=== PATIENT | female | born 1960 | race Caucasian/White ===

== ENCOUNTER 2025-02-07 01:29 | Inpatient (IN) | payer OTHER, SELFPAY ==
[2025-02-06] VITALS (7 sets, daily range): BP systolic 89–156; BP diastolic 58–87; BMI 25.0
--- NOTE | 2025-02-06 20:10 | ED.GENMED ---
History of Present Illness
General
Chief Complaint: Fall
Source: patient and spouse
Time Seen by Provider: 02/06/25 19:56
History of Present Illness
History of Present Illness:
This patient is a 64-year-old female presents emergency department after suffering a fall at approximately 2 PM. Patient has a history of an irregular gait and wears braces on both her legs. She was not wearing braces at the time of the event.
She was in her home, and turned to go into the kitchen and stumbled, says that she struck the right hip area on the wall before falling to the ground. She denies head injury, neck pain, numbness, tingling, focal weakness, chest pain, shortness of
breath, abdominal pain. She does note discomfort in the right inner groin area particularly with movement. This pain will sometimes radiate distally to the level of the knee. She denies back pain, or other complaints.
Past History
Past History
ED Past Medical History: Cancer (Skin cancer), GERD (Hiatal hernia), Psychiatric and Other (L1 compression fracture)
ED Past Surgical History: Orthopedic and Other (Skin cancer removal from nose)
Social History
Tobacco: Former smoker
Alcohol: None
Drug: None
Personal:
Living: with family
Employment: Not employed
Family History
Family History: Other (Noncontributory)
Phy Exam
Physical Exam
Physical Exam:
GENERAL: Alert , in no apparent distress
EYE: pupils equal and reactive, EOMI, no nystagmus, no photophobia
NECK: Supple, no significant adenopathy, no midline tenderness.
ENT: o/p clr, mmm, no guevara, no raccoon, no signs of head or facial injury noted on exam.
CARDIAC: Regular rate and rhythm .
LUNGS: Clear breath sounds bilaterally, no acute respiratory distress, no wheezes/rales/rhonchi
ABDOMEN: Soft, without focal tenderness, no r/g
NEUROLOGICAL: Alert and oriented, nonfocal, sens intact, cn intact. Pt with diminished motor in le bilat, chronic
SKIN: Warm and dry, skin intact.
MUSCULOSKELETAL: No edema, well perfused. 2+ DP pulses. Decr ROM of R hip due to pain. No rotation, deformity/bruising/swelling. THere is ttp note at R inguinal fold area (mild), no sts/bruiising, ttp at entire R le otherwise
PSYCH: Normal and appropriate interaction.
Course
Orders/Labs/Results
Orders:
Orders
02/06/25 20:10
Morphine Sulfate 6 mg IV NOW STA
Hip, Right 2-3 Views [CR Hip - RT w/wo Pel 2-3 Vw*] Urgent
Comment:
Reason For Exam: fall
Include a pelvis x-ray?: Yes
02/06/25 22:28
Morphine Sulfate 6 mg IV NOW STA
02/07/25 00:53
Admit/Transfer Patient As Directed
Co-Sign Provider:
Level of Care: Inpatient admission
Assign to:: Medical/Surgical
Physician / Group: Julio
Diagnosis: Fall with hip fracture
Reason for Hospitalization: hip fracture
Expected length of stay greater than two midnights?: Yes
ELOS- Estimated Length of Stay in days: 2
I certify the patient meets the requirements for IP care: Yes
Code Status As Directed
Resuscitation Status: Full Code
PRN Pain Medication Management As Directed
May give lesser potent ordered pain med per pt: Yes
preference::
Protocol:: Medication orders for pain may be administered in a
manner that supports deferring to patient preference
when the pt is:
- Requesting an ordered lesser potent pain medication.
Least to most potent pain medications are defined
as: acetaminophen < NSAID < tramadol < opioids
(morphine, oxycodone, hydromorphone).
- Requesting a lesser dose of the same medication IF
ORDERED.
- Requesting a less intrusive route of administration
if both routes are prescribed by the provider (PO <
IV).
02/07/25 01:31
Oxycodone [Roxicodone] 5 mg PO Q6HPRN PRN
02/07/25 02:38
Dextrose 5%/Lactringers 1000ML [D5lr] 1,000 ml IV 75 mls/hr
Magnesium Hydroxide [Milk of Magnesia] 30 ml PO DAILYPRN PRN
Ondansetron Injectable [Zofran] 4 mg IV Q6HPRN PRN
02/07/25 02:38
ORTHOPEDIC CONSULT Routine
Consulting Provider: Fredy Lopez
Was physician already notified: Yes
Activity As Directed
Activity Level: With Assistance
Bladder Scan As Directed
Follow Bladder Retention/Intermittent Cath Algorithm?: Yes
PRN if no void in __ hours: 6
Comment: if not voiding 6 hrs upon arrival to floor, bladder scan & follow algorithm
Intake/ Output As Directed
Frequency: Per unit guidelines
Pneumatic Compression Sleeves As Directed
Type: Knee high
Straight Cath As Directed
Frequency: Per Retention Algorithm
Additional Instructions: straight cath as needed per acute urinary retention algorithm for 24 hrs
Additional Instructions: for bladder scan greater than 400 mL
Vital Signs As Directed
Frequency: Per unit guidelines
Weight Bearing Status As Directed
Weight bearing to: Right lower extremity
Type: Non Wt. bearing
Ot Eval And Treat Routine
Pt Eval And Treat Routine
Activity Level: With Assistance
DX Deep Vein Thrombosis Video Routine
02/07/25 03:00
Morphine Sulfate 1 mg IV Q2HPRN PRN
Morphine Sulfate 2 mg IV Q2HPRN PRN
02/07/25 04:00
Acetaminophen [Tylenol] 650 mg PO Q4HWA
02/07/25 05:24
Complete Blood Count/With Diff IN AM
Prothrombin Time IN AM
02/07/25 Breakfast
NPO
Allow oral meds: Yes
Allow clear liquids: Sips of Clears
02/07/25 08:00
Paroxetine [Paxil] 20 mg PO DAILY
02/07/25 20:00
Docusate Sodium [Colace] 100 mg PO BID
Sennosides [Senokot] 17.2 mg PO BID
02/07/25 22:00
Trazodone [Desyrel] 50 mg PO HS
Vital Signs
Initial and Last Documented VS:
Initial Vital Signs
Temp Pulse Resp BP Pulse Ox
97.7 F 68 20 156/87 100
02/06/25 15:17 02/06/25 15:17 02/06/25 15:17 02/06/25 15:17 02/06/25 15:17
Last Documented Vital Signs
Temp Pulse Resp BP Pulse Ox
98.4 F 78 16 130/84 95
02/07/25 15:30 02/07/25 15:30 02/07/25 15:30 02/07/25 15:30 02/07/25 15:30
*Pulse Oximetry
SaO2: 100
Oxygen Mode of Delivery: Room air
Patient hypoxic: no
*Critical Care Note
Total Time (30-74mins, 75-104mins- exclusive of procedures): Not Applicable
Update Note
Update Note:
Patient presents to the Emergency Department with fall
Number and Complexity of Problems Addressed at the Encounter
� Chronic conditions affecting care:
� Acute Exacerbation and/or Progression of Chronic Illness:
� Differential Diagnosis includes: But not limited to hip fracture, pelvic fracture, soft tissue injury, closed head injury, sacral/lumbar fracture, etc. etc.
Amount and/or Complexity of Data to be Reviewed and Analyzed
� I performed an independent evaluation of and my interpretation is:
EKG:
CT:
Xrays: Right sided hip fracture noted
Laboratory Studies:
Other:
� Review of other/old records reveals:
� Clinical information was obtained by an independent historian: who is bedside
� Prescriptions/Medications Considered but not given:
� Further testing considered but not performed:
Risk of Complications and/or Morbidity or Mortality of Patient Management
� Social determinants of health affecting care:
� Discussion with other providers (PCP, Hospitalists, Consultants, etc):
� Escalation of care including admission/observation vs risk of discharge considered: Patient denies preceding symptoms to fall to suggest cardio or neurovascular new event.
Case discussed with Dr. Lopez via [place] text, x-ray shared, patient will be admitted to hospitalist with plans for probable operative intervention tomorrow.
ED Attending Note
-
Portions of this chart may have been created with voice recognition software.� Occasional wrong word or��sound alike� substitutions may have occurred due to the inherent limitations of voice recognition software.
Discharge Plan
Departure
Patient Disposition: Admit
Date of Disposition: 02/06/25
Time of Disposition: 23:59
Presentation/result/management discussed w/ accepting MD/DO: Hospitalist
Discharge Problem:
Closed hip fracture
Interventions
Interventions:
*General Assessment Last Done: 02/06/25 15:22
*Neglect/Abuse Screening Last Done: 02/06/25 15:22
*ED COVID-19 Vaccine History Last Done: 02/06/25 15:22
*ED Influenza Vaccine History Last Done: 02/06/25 15:22
[facility] Fall Risk Assessment Tool Last Done: 02/06/25 20:00
*Risk Screen - Suicide (C-SSRS) Last Done: 02/06/25 15:22
*Nursing Disposition Last Done: 02/07/25 06:04
ED-Musculoskeletal Assessment Last Done: 02/06/25 20:53
ED- Neurological Assessment Last Done: 02/06/25 20:53
ED-Skin Assessment Last Done: 02/06/25 20:53
Discharge Date and Time
Discharge Date/Time: 02/07/25 06:05
[2025-02-06] MEDS: MORPHINE SULFATE 6 MG IV ×2 (20:49→22:53)
[2025-02-07] VITALS (18 sets, daily range): BP systolic 86–134; BP diastolic 59–93; PULSE 76; O2SAT 93; BMI 24.8
--- NOTE | 2025-02-07 00:34 | HPS.HSE ---
Family Physician
-
Family Physician: Halima Mccann DO
Chief Complaint
-
Mechanical fall
History of Present Illness
Patient is a 64-year-old female with past medical history significant for history of L1 compression fracture at age 14 with resultant chronic damage normal x-rays difficulties requiring braces who presents to the emergency department following a
fall at home.
Patient reported that she usually has braces on knees when she is ambulating around but when she is home she has braces started out for inserts and less effective. She was using the inside braces at home when she reported rapidly and then misjudged
her step and fell. She slammed against a dog but did not hit her head and did not did not fall. She had significant pain immediately and was having difficulty ambulating.
In the emergency department she was found to have a hip fracture. Blood pressure was 101/77 pulse of 78 and oxygen saturation of 97% on room air.
X-ray shows a right sided displaced trochanteric fracture.
Medical History
Past Medical History
Past Medical History: Reports Psychiatric (Anxiety,) and Other (Bilateral foot drop)
Past Surgical History: Reports Orthopedic (L1 compression fracture,)
Social History
Tobacco: Non-smoker
Alcohol: Occasional
Drug: None
Personal:
Living: With Family
Family History
Family History: Not pertinent
Allergies / Home Medications
Allergies reflects when Allergies were last updated in [employer].
Home Medications with original date entered in [employer]
Allergy/Medication List:
Allergies
Allergy/AdvReac Type Severity Reaction Status Date / Time
fluticasone (From Flonase) Allergy Hives Verified 02/06/25 15:23
Home Medications
Multivitamin PO DAILY 07/03/14
loratadine 10 mg tablet 10 mg PO DAILY 07/03/14
paroxetine HCl 20 mg tablet 20 mg PO DAILY 07/03/14
Trazodone 50 mg tablets, 50 mg p.o. at bedtime
Review of Systems
-
Constitutional: Reports No Symptoms
EENT: Reports No Symptoms
Respiratory: Reports No Symptoms
Cardiac: Reports No Symptoms
Abdomen/GI: Reports No Symptoms
: Reports No Symptoms
Musculoskeletal: Reports Joint Pain
Skin: Reports No Symptoms
Neurological: Reports No Symptoms
Endocrine: Reports No Symptoms
Hematologic/Lymphatic: Reports No Symptoms
Psych: Reports No Symptoms
Physical Exam
Vital Signs
Vital Signs
Temp Pulse Resp BP Pulse Ox
97.7 F 78 16 121/77 97
02/06/25 15:17 02/06/25 22:56 02/06/25 22:56 02/06/25 22:53 02/06/25 23:47
Physical Exam
General: Well Developed, Well Nourished and No Apparent Distress
HEENT: NormoCephalic, Moist mucous membranes and Atraumatic
Respiratory: Clear
Cardiac: S1/S2 and Regular Rhythm; No Murmur or Rub
GI: Soft, Non Tender, Non Distended and Normal Bowel Sounds; No Organomegaly
Rectal: Deferred by Provider
Musculoskeletal: No Clubbing, No Cyanosis and No Edema
Skin: No Rash
Neuro: Nonfocal/grossly intact
Psych: Calm
Data Reviewed
-
Diagnostic Radiology: Image Personally Visualized and interpreted
Impression/Plan
-
IMPRESSION:
Patient is a 64-year-old with past medical history significant for L1 compression fracture with resultant bilateral foot drop and ambulatory dysfunction who suffered a mechanical fall she was pivoting slamming against a door with the right hip and
developed pain intertrochanteric fracture of the right hip on x-ray. She is hemodynamically stable. Pulses are intact. She is nontoxic-appearing. She is not on any blood thinners or aspirin and did not hit her head.
PLAN:
Femur fracture
- Admit to [facility]
-Bedrest for now
-Pain control and antiemetics
-N.p.o., maintenance fluids
� Discussed with orthopedics, plan for operative intervention in a.m.
� Follow-up fracture protocol with monitoring for urinary retention
� PT consult
DVT processes�SCDs for now, can start anticoagulation after surgical procedure
CODE STATUS�full code
[2025-02-07] MEDS: MORPHINE SULFATE 2 MG IV ×3 (02:24→08:16)
[2025-02-07] MEDS: D5LR 1000 IV (03:44)
[2025-02-07] MEDS: ROXICODONE 5 MG PO ×2 (03:58→21:05)
[2025-02-07] MEDS: TYLENOL 650 MG PO ×5 (04:12→21:06)
[2025-02-07 05:36] LABS: Hematocrit 36.6 % (37.0-47.0); Hemoglobin 13.3 g/dL (12.0-16.0); Mean Corp Hgb Conc. 36.3 g/dL (33.0-37.0); Mean Corpuscular Volume 77.7 fL (81.0-99.0); Nucleated Red Blood Cells % 0 %; Platelet Count 243 10^3/uL (130-400); Red Cell Dist. Width 12.5 % (11.5-14.5)
[2025-02-07 05:55] LABS: INR 1.15; PT 14.8 Sec (11.4-14.6)
[2025-02-07 06:18] LABS: Blood Urea Nitrogen 7 mg/dl (7-17); Calcium 8.2 mg/dl (8.4-10.2); Carbon Dioxide 24 mmol/L (22-30); Chloride 102 mmol/L (98-107); Estimated Creatinine Clearance 89 ml/min; Glucose 110 mg/dl (70-99); Sodium 132 mmol/L (135-145); eGFR > 60.00
--- NOTE | 2025-02-07 07:35 | CON.ORTHO ---
Consultation
-
Date/Time Consultation Requested: 02/07/2025 @ 2:38 AM
Date/Time Consultation Performed: 02/07/2025 @ 7:15 AM
Requesting Provider: Bernadette Kim MD
Performing Provider: Ankit Gonzalez PA-C for Dr. Lopez
Reason for Consultation: Right Hip Pain s/p Mechanical Fall
Consultation - Orthopedics
History
Orthopedic Surgery Note
CC: Right Hip Pain s/p Mechanical Fall
HPI: The patient is a 64-year-old female with PMH significant for history of L1 compression fracture at age 14, which unfortunately resulted in chronic neurologic sequelae, who presented to [facility] ED via EMS after sustaining a mechanical fall
yesterday. She reports that she utilizes the lower extremity braces due to irregular gait. She typically does not ambulate with assistance of a walker or cane. She reports that she was not wearing the braces at the time of the event. She was in
her home, and turned to go into the kitchen and stumbled, says that she struck the right hip area on the wall before falling to the ground. She reports immediate onset of pain to the right hip and inability to weight-bear. In the ED, x-rays
revealed a right proximal femur fracture. Orthopedic surgery was consulted for the consideration of surgical fixation.
PMH/PSH:
Past Medical History: Reports Psychiatric (Anxiety,) and Other (L1 compression fracture)
Past Surgical History: Orthopedic and Other (Skin cancer removal from nose)
Medications: Reviewed.
Family History: Family history was reviewed. Noncontributory.
Social history:
Tobacco: Non-smoker
Alcohol: Occasional
Drug: None
Personal:
Living: With family in single level home
Review of Systems: 12-point review of systems obtained and negative except those mentioned in the HPI.
Exam:
General appearance: Pleasant. No acute distress.
Head: Normocephalic/atraumatic
Nose: No lesions or discharge.
Skin: No obvious rashes or open wounds
Lungs: No audible wheezing, no cough or sputum production
Musculoskeletal:
RLE: Directed exam of the right lower extremity reveals leg shortened and externally rotated. (+) TTP about the right hip/lateral thigh. Compartments are soft and compressible. (+) Logroll. Calf is soft and nontender to palpation. Able to
dorsiflex and plantarflex right ankle; strength intact with resisted dorsiflexion and weakness noted with resisted plantarflexion.
Imaging:
X-rays: CR Hip - RT w/wo Pel 2-3 Vw* was obtained [facility] on 02/06/2025 and was made available for my review today. Findings/Impression: Intertrochanteric femoral fracture with displacement of the lesser trochanter.
Assessment: 64-year-old female with a RIGHT intertrochanteric proximal femur fracture. History of L1 compression fracture with chronic neurologic sequelae.
Plan: Unfortunately, the patient has sustained a right hip fracture. Treatment options, including both nonoperative and operative approaches were discussed with the patient this morning at length. Recommended operative fixation. The risks,
benefits, potential complications and expected post-operative course were reviewed. We will plan for RIGHT hip gamma nail under the direction of Dr. Lopez today, 02/07/2025. Surgical and blood consents obtained and placed on patient's chart.
Ancef on-call to OR. Patient will remain NPO. Remain NWB to RLE until postop. She is to remain on bedrest for now. Continue with pain medications as needed. Type and screen pending. Right hip marked as the correct surgical extremity.
Hemoglobin 13.3 from this AM. Orthopedic surgery will continue to follow along.
Allergies / Home Medications
Allergy/AdvReac Type Severity Reaction Status Date / Time
fluticasone (From Flonase) Allergy Hives Verified 02/06/25 15:23
�Medication �Instructions �Recorded
Multivitamin PO DAILY 07/03/14
ascorbic acid (vitamin C) 500 mg 500 mg PO DAILY 07/03/14
tablet (Vitamin C)
calcium carbonate (calcium) 500 mg PO DAILY 07/03/14
loratadine 10 mg tablet 10 mg PO DAILY 07/03/14
paroxetine HCl 20 mg tablet 20 mg PO DAILY 07/03/14
trazodone 50 mg tablet 50 mg PO HS 02/07/25
Vital Signs / Lab Results
Temp Pulse Resp BP Pulse Ox
98.1 F 64 16 134/83 96
02/07/25 06:23 02/07/25 06:23 02/07/25 06:23 02/07/25 06:23 02/07/25 06:23
02/07/25 05:24
02/07/25 05:24
--- NOTE | 2025-02-07 09:57 | CM ---
CM went to visit patient
Right Hip Pain s/p Mechanical Fall
unavailable at this time, OR
CM to follow up with patient
[2025-02-07] MEDS: ANCEF 10 IV (09:59)
[2025-02-07] MEDS: DILAUDID 0.25 MG IV ×2 (10:55→11:03)
[2025-02-07] MEDS: PAXIL 20 MG PO (11:44)
--- NOTE | 2025-02-07 13:38 | W.PN.HOSP.TC ---
Today's Communication/Plan
-
Monitor vital signs
see plan
OR today
Orthopedics following
DVT prophylaxis
PT/OT
Assessment / Plan
Assessment / Plan
General: Well Developed, Well Nourished and No Apparent Distress
HEENT: NormoCephalic, Moist mucous membranes and Atraumatic
Respiratory: Clear
Cardiac: S1/S2 and Regular Rhythm; No Murmur or Rub
GI: Soft, Non Tender, Non Distended and Normal Bowel Sounds
Musculoskeletal: No Edema
Neuro: Nonfocal/grossly intact
Psych: Calm
Right intertrochanteric proximal femur fracture 2/2 fall
Status post OR 02/07 by orthopedics
Orthopedics following
Aspirin for DVT prophylaxis postop
PT/OT
Hyponatremia
Monitor
History of allergies
DVT processes�aspirin
CODE STATUS�full code
Anticipated Discharge: 24 - 48 hours
Subjective/Interval History
-
Date of Service: February 07, 2025
denies pain
Objective Data
-
Labs:
Laboratory Results
02/07/25
05:24
WBC 6.1
Hgb 13.3
Hct 36.6 L
Plt Count 243
PT 14.8 H
INR 1.15
Sodium 132 L
Potassium
Chloride 102
Carbon Dioxide 24
BUN 7
Creatinine 0.4 L
Glucose 110 H
Calcium 8.2 L
Total Bilirubin Cancelled
AST Cancelled
ALT Cancelled
Alkaline Phosphatase Cancelled
Vital Signs:
Vital Signs
Temp Pulse Resp BP Pulse Ox
98.1 F 69 12 129/59 93
02/07/25 13:30 02/07/25 13:30 02/07/25 13:30 02/07/25 13:30 02/07/25 13:30
I&O
02/06/25 02/07/25 02/08/25
06:59 06:59 06:59
Intake Total 100 / 100
Output Total 950 / 950
Balance -950 / -950 100 / 100
[2025-02-07] MEDS: ANCEF 5 IV (16:14)
[2025-02-07] MEDS: ASPIRIN 325 MG PO (16:14)
--- NOTE | 2025-02-07 16:46 | CM ---
patient seen at bedside
IA completed
CM consult completed - DC planning
PT rec home health - options reviewed prefers [facility] referral placed in [facility]
patient lives in 1 story home with and son, ramp to enter
DME: [employer] [employer] bars in shower, bench in shower
denies VN/rehab
PCP: Halima Mccann
Pharmacy: [facility] for mail
PLAN: Home with [facility] when stable
family to transport
[2025-02-07] MEDS: SENOKOT 17.2 MG PO (21:05)
[2025-02-07] MEDS: COLACE 100 MG PO (21:05)
[2025-02-07] MEDS: DESYREL 50 MG PO (21:06)
--- NOTE | 2025-02-07 22:26 | PTCARENOTE ---
pt oob to chair/ bsc- medicated with pain meds see mar ax3 afebrile bp wnl
[2025-02-08] MEDS: TYLENOL PO ×2 (01:04→04:21)
[2025-02-08] MEDS: FLUSH (NSS) 2 FLUSH IV (02:35)
[2025-02-08] MEDS: ANCEF 5 IV (02:35)
[2025-02-08 04:00] VITALS: BP 106/64
[2025-02-08] MEDS: ROXICODONE 5 MG PO ×2 (06:38→11:53)
[2025-02-08 06:48] LABS: Hematocrit 33.8 % (37.0-47.0); Hemoglobin 12.0 g/dL (12.0-16.0); Mean Corp Hgb Conc. 35.5 g/dL (33.0-37.0); Mean Corpuscular Volume 78.4 fL (81.0-99.0); Nucleated Red Blood Cells % 0 %; Platelet Count 220 10^3/uL (130-400); Red Cell Dist. Width 12.7 % (11.5-14.5)
[2025-02-08] MEDS: COLACE 100 MG PO (07:18)
[2025-02-08] MEDS: PAXIL 20 MG PO (07:19)
[2025-02-08] MEDS: SENOKOT 17.2 MG PO (07:19)
[2025-02-08] MEDS: TYLENOL 650 MG PO ×2 (07:19→11:26)
[2025-02-08] MEDS: ASPIRIN 325 MG PO (07:19)
[2025-02-08] MEDS: MORPHINE SULFATE 2 MG IV (07:23)
[2025-02-08 07:41] LABS: Blood Urea Nitrogen 7 mg/dl (7-17); Calcium 8.1 mg/dl (8.4-10.2); Carbon Dioxide 25 mmol/L (22-30); Chloride 103 mmol/L (98-107); Estimated Creatinine Clearance 89 ml/min; Glucose 98 mg/dl (70-99); Potassium 3.7 mmol/L (3.5-5.1); Sodium 133 mmol/L (135-145); eGFR > 60.00
[2025-02-08 07:44] VITALS: BP 132/59
--- NOTE | 2025-02-08 08:53 | W.PN.ORTHO ---
Today's Communication / Plan
-
64F POD #1 Right Hip CMN 02/07/[address] Lopez.
- WBAT RLE with use of walker for ambulatory assistance
- Hgb this AM 12.0; continue to monitor
- ASA 325mg once daily x 4 weeks for DVT prophylaxis
- PT/OT/Discharge planning
- Pain control per primary team. Ice therapy and elevation for edema control
- Orthopedic surgery will continue to follow
Assessment
.
Distal Motor Intact: Yes
Dressing:
Surgical dressings intact. Scant contained bloody drainage noted; appears stable.
Thigh is soft and compressible. Calf is soft and nontender.
AFO braces intact about B/L LE.
Sensation intact to light touch distally.
Assessment:
POD #1 Right Hip CMN 02/07/[address] Lopez.
Plan
.
Surgery / Date: 02/07/2025 Right Hip CMN with Dr. Lopez
DVT Prophylaxis: Aspirin
Activity:
Out of bed.
PT/OT.
WBAT RLE.
Discharge Plan: Other
Discharge Information:
Appreciate CM.
Subjective
.
.:
Patient resting comfortably.
Vital Signs and Labs
.
Vital Signs and Labs:
Lab Results
02/08/25 06:18
02/08/25 06:18
Temp Pulse Resp BP Pulse Ox
98.8 F 69 16 132/59 132
02/08/25 07:44 02/08/25 07:44 02/08/25 07:44 02/08/25 07:44 02/08/25 07:44
PT 14.8 Sec (11.4-14.6) H 02/07/25 05:24
INR 1.15 02/07/25 05:24
--- NOTE | 2025-02-08 09:28 | CM ---
Addendum entered by Siria Torres 02/08/25 09:33:
[facility] fax #: [phone]
Original Note:
spoke with patient regarding home health
prefers [facility]-spoke with Vilma
referral added in [facility]
IMM n/a
PLAN: Home with [facility] when stable
family will transport
--- NOTE | 2025-02-08 11:03 | W.PN.HOSP.TC ---
Addendum entered and electronically signed by Robin Mejia MD 02/08/25 11:31:
Time of discharge 38 minutes
Original Note:
Today's Communication/Plan
-
Monitor vital signs and see plan
Pain control
Orthopedics follow-up outpatient
Discharge today
Aspirin for DVT prophylaxis
Assessment / Plan
Assessment / Plan
General: Well Developed, Well Nourished and No Apparent Distress
HEENT: NormoCephalic, Moist mucous membranes and Atraumatic
Respiratory: Clear
Cardiac: S1/S2 and Regular Rhythm; No Murmur or Rub
GI: Soft, Non Tender, Non Distended and Normal Bowel Sounds
Musculoskeletal: No Edema
Neuro: Nonfocal/grossly intact
Psych: Calm
Right intertrochanteric proximal femur fracture 2/2 fall
s/p Right Hip CMN 02/07/[address] Lopez.
Orthopedics following
Aspirin for DVT prophylaxis postop
PT rec home health
WBAT RLE with use of walker for ambulatory assistance
Hyponatremia
Monitor
History of allergies
DVT processes�aspirin
CODE STATUS�full code
Anticipated Discharge: Today
Subjective/Interval History
-
Date of Service: February 08, 2025
Does have some pain
Objective Data
-
Labs:
Laboratory Results
02/08/25
06:18
WBC 6.8
Hgb 12.0
Hct 33.8 L
Plt Count 220
Sodium 133 L
Potassium 3.7
Chloride 103
Carbon Dioxide 25
BUN 7
Creatinine 0.5 L
Glucose 98
Calcium 8.1 L
Vital Signs:
Vital Signs
Temp Pulse Resp BP Pulse Ox
98.8 F 69 16 132/59 132
02/08/25 07:44 02/08/25 07:44 02/08/25 07:44 02/08/25 07:44 02/08/25 07:44
I&O
02/07/25 02/08/25 02/09/25
06:59 06:59 06:59
Intake Total 625 / 625
Output Total 950 / 950 800 / 800
Balance -950 / -950 -175 / -175
--- NOTE | 2025-02-08 11:30 | W.DCSUMMARY ---
Discharge Summary
Discharge Data
Date of Admission: 02/07/25
Date of Discharge: 02/08/25
-
Pending Results: No
Hospital Course
64-year-old female with past medical history of allergies came to the hospital after a fall with a right intertrochanteric proximal femur fracture. Patient seen by orthopedics and was taken for surgery. Postop patient was seen by physical therapy
who recommended home health. For DVT prophylaxis orthopedist recommended full dose aspirin. Patient was also recommended weakness as tolerated right lower extremity with use of walker for ambulatory assistance. Once patient's symptoms were
improving, she was then discharged home with instructions to follow-up with all her physicians outpatient.
Discharge Plan
-
Patient Disposition: Home with Home Care
Discharge Diagnosis/Procedures: Right intertrochanteric proximal femur fracture s/p surgery
Hyponatremia
Condition: Fair
Diet: As tolerated
Activity: With assistance, As tolerated and Other activity
Additional Activity: WBAT RLE with use of walker for ambulatory assistance
Driving Restrictions: Not until seen by your Dr
Bathing Restrictions: None
Activity Restrictions/Additional Instructions:
ASA 325mg once daily x 4 weeks for DVT prophylaxis
Referrals:
Halima Mccann DO [Family Provider, Family Practice] - in less than 1 week
Fredy Lopez MD [Active, Orthopedics] - in two weeks
Referral Note: Staple Removal
Prescriptions:
New
aspirin 325 mg Tablet
325 mg PO DAILY Qty: 27 0RF
docusate sodium 100 mg Capsule
100 mg PO BID Qty: 0 0RF
oxycodone 5 mg Tablet
5 mg PO Q6HPRN PRN (Reason: Moderate to severe pain) Qty: 20 0RF
acetaminophen [Tylenol Extra Strength] 500 mg tablet
1,000 mg PO TID Qty: 1 0RF
Continued
calcium carbonate [calcium] 500 MG tablet
500 mg PO DAILY
ascorbic acid (vitamin C) [Vitamin C] 500 MG tablet
500 mg PO DAILY
paroxetine HCl 20 MG tablet
20 mg PO DAILY
loratadine 10 MG tablet
10 mg PO DAILY
Multivitamin
PO DAILY
trazodone 50 mg Tablet
50 mg PO HS
Discharge Orders:
Discharge Patient (As Directed); Ordered 02/08/25
Ordered By: Robin Mejia
Discharge Date and Time
Discharge Date/Time: 02/08/25 15:36
Print Language: FRISIAN
[2025-02-08 13:30] VITALS: BP 133/75; PULSE 78; O2SAT 96
[2025-02-08 13:34] VITALS: BP 133/75; PULSE 78; O2SAT 96
[2025-02-08 15:00] VITALS: BP 135/78
--- NOTE | 2025-02-10 08:14 | VNURNOTE ---
Rec'ed update that [facility] did not accept pt. Referral re-entered for [facility]. CM notified pt of update.
--- NOTE | 2025-02-10 08:16 | CM ---
CM rec voice mail from [facility] at [facility] unable to accept patient due to high case loads in patient area.
Referral placed to [facility] - spoke with and updated
will attempt to expedite referral
== END 2025-02-08 15:36 | disposition home health service (06) | DRG 481 ==
LOC: 1 ACUTE 01:29
PROVIDERS: ADMITTING PHYSICIAN Internal Medicine; ATTENDING PHYSICIAN Internal Medicine; CONSULT PHYSICIAN Orthopaedic Surgery; EMERGENCY PHYSICIAN Emergency Medicine; FAMILY PHYSICIAN Internal Medicine
PROC: 0QS606Z Reposition Right Upper Femur with Intramedullary Internal Fixation Device, Open Approach (ICD-10-PCS; 2025-02-07)
DX: S72.141A Displaced intertrochanteric fracture of right femur, initial encounter for closed fracture (principal); E87.1 Hypo-osmolality and hyponatremia; K21.9 Gastro-esophageal reflux disease without esophagitis; R26.2 Difficulty in walking, not elsewhere classified; K44.9 Diaphragmatic hernia without obstruction or gangrene; M21.372 Foot drop, left foot; M21.371 Foot drop, right foot; F41.9 Anxiety disorder, unspecified; W01.198A Fall on same level from slipping, tripping and stumbling with subsequent striking against other object, initial encounter; Y93.01 Activity, walking, marching and hiking; Y92.000 Kitchen of unspecified non-institutional (private) residence as the place of occurrence of the external cause; Z85.828 Personal history of other malignant neoplasm of skin; Z87.891 Personal history of nicotine dependence; Z87.81 Personal history of (healed) traumatic fracture; Z88.8 Allergy status to other drugs, medicaments and biological substances
CPT/HCPCS: 73502; 73552; 76000; 80048; 85025; 85610; 86850; 86900; 86901; 96365; 96366; 96375; 96376; 97116; 97162; 97166; 97530; 97535; 99284; C1713; C1769